=== PATIENT | female | born 1960 | race Caucasian/White ===

== ENCOUNTER 2019-02-08 21:45 | Observation (INO) ==
[2019-02-08] MEDS ORDERED: Ondansetron 4 MG/2 ML VIAL IVP ONE (22:10)
[2019-02-08] MEDS ORDERED: Morphine Sulfate 2 MG/ML SYRINGE IVP ONE (22:10)
--- NOTE | 2019-02-08 22:13 | Emergency Department Note ---
Disposition Referrals: Delonte Turner MD [Primary Care Provider] - Chest Pain HPI - General Chief Complaint: ED Shortness of Breath/Dyspnea Stated Complaint: Back and chest pain Time Seen by Provider: 02/08/19 21:47 Source: patient, EMS - History of Present Illness Severity scale (1-10): 5 - Related Data Home Medications Medication Instructions Recorded Confirmed BuPROPion XL (24 HR) [Wellbutrin 150 mg PO DAILY 08/12/17 08/12/17 XL] Cyclobenzaprine [Flexeril] 10 mg PO TID PRN 08/12/17 08/12/17 Duloxetine HCl [Cymbalta] 60 mg PO DAILY 08/12/17 08/12/17 Losartan Potassium [Cozaar] 50 mg PO DAILY 08/12/17 08/12/17 Montelukast [Singulair] 10 mg PO DAILY 08/12/17 08/12/17 Omeprazole [PriLOSEC] 20 mg PO DAILY 08/12/17 08/12/17 Triamterene/HCTZ 37.5/25mg 1 tab PO DAILY 08/12/17 08/12/17 [Dyazide] Allergies Allergy/AdvReac Type Severity Reaction Status Date / Time Sulfa (Sulfonamide Allergy Hives Verified 08/12/17 10:54 Antibiotics) Chest Pain PMH - Past Medical History Medical history: Reports: hypertension, other Surgical history: Reports: hysterectomy, other Psychiatric history: Reports: no psych history - Social History Smoking Status: Current every day smoker Alcohol use: Reports: none Drug use: Reports: none Physical Exam - General General appearance: alert Course Vital Signs Temperature 98.4 F 02/08/19 21:50 Pulse Rate 92 02/08/19 21:50 Respiratory Rate 02/08/19 21:50 Blood Pressure 127/84 02/08/19 21:50 O2 Sat by Pulse Oximetry 100 02/08/19 21:50 Temperature 98.4 F 02/08/19 21:50 Pulse Rate 92 02/08/19 21:50 Respiratory Rate 02/08/19 21:50 Blood Pressure 127/84 02/08/19 21:50 O2 Sat by Pulse Oximetry 100 02/08/19 21:50 Oxygen Delivery Oxygen Delivery Room Air
--- NOTE | 2019-02-08 22:16 | Emergency Department Note ---
Disposition Clinical Impression: Chest pain Qualifiers: Chest pain type: other chest pain Qualified Code(s): R07.89 - Other chest pain Disposition: Admitted As Inpatient Condition: Good Time of Disposition: 03:08 Chest Pain HPI - General Chief Complaint: ED Shortness of Breath/Dyspnea Stated Complaint: Back and chest pain Time Seen by Provider: 02/08/19 21:47 Source: patient, EMS Vital Signs Reviewed: Yes Nursing Notes Reviewed: Yes - History of Present Illness Pt complaint: chest pain Onset (ago): hour(s) Time: 13:00 (while on playground with famiy) Duration: constant Onset: during rest Pain Location: substernal, epigastric Severity scale (1-10): 5 Quality: heaviness Pain Radiation: back (midscapular), jaw/teeth (bilateral) Improves with: nitroglycerin (at EMS) Worsens with: supine Associated symptoms: Reports: dyspnea. Denies: nausea, vomiting, diaphoresis, sense of impending doom, palpitations, fever, cough, leg swelling Treatments prior to arrival chest pain: aspirin, nitroglycerin (in EMS) - Related Data On Oral Contraceptives: No Home Medications Medication Instructions Recorded Confirmed BuPROPion XL (24 HR) [Wellbutrin 450 mg PO DAILY 08/12/17 02/09/19 XL] Cyclobenzaprine [Flexeril] 10 mg PO TID PRN 08/12/17 02/09/19 Duloxetine HCl [Cymbalta] 120 mg PO DAILY 08/12/17 02/09/19 Losartan Potassium [Cozaar] 50 mg PO DAILY 08/12/17 02/09/19 Montelukast [Singulair] 10 mg PO DAILY 08/12/17 02/09/19 Omeprazole [PriLOSEC] 20 mg PO DAILY 08/12/17 02/09/19 Triamterene/HCTZ 37.5/25mg 1 tab PO DAILY 08/12/17 02/09/19 [Dyazide] Allergies Allergy/AdvReac Type Severity Reaction Status Date / Time Sulfa (Sulfonamide Allergy Hives Verified 08/12/17 10:54 Antibiotics) All systems ED: reviewed and negative except as stated. Review of Systems: As Per HPI Constitutional: Denies: fever ENT ED: Reports: as per HPI. Denies: throat pain Cardiovascular: Reports: as per HPI Respiratory: Reports: as per HPI. Denies: hemoptysis, stridor, sputum production Gastrointestinal: Reports: as per HPI. Denies: diarrhea, constipation Genitourinary: Denies: dysuria Musculoskeletal: Reports: as per HPI Integumentary: Denies: rash Neurological: Denies: headache Endocrine: Denies: fatigue Hematological/Lymphatic: Denies: lymphadenopathy Allergic/Immunologic: Denies: facial swelling Chest Pain PMH - Past Medical History Medical history: Reports: hypertension, other Surgical history: Reports: hysterectomy, other Psychiatric history: Reports: no psych history - Social History Smoking Status: Current every day smoker Alcohol use: Reports: none Drug use: Reports: none Physical Exam - General Limitations: no limitations General appearance: alert, in no apparent distress - Head Head exam: atraumatic, normocephalic - Eye Eye exam: Present: EOMI - ENT ENT exam: normal oropharynx, mucous membranes moist - Neck Neck exam: Present: full ROM. Absent: lymphadenopathy - Chest Chest inspection: Present: symmetric chest wall rise - Respiratory Respiratory exam: Present: normal lung sounds bilaterally. Absent: respiratory distress, wheezes, stridor, accessory muscle use - Cardiovascular Cardiovascular exam: Present: regular rate, normal rhythm - Abdominal Exam Abdominal exam: Present: soft, Non-Tender. Absent: Escoto's sign - Extremities Exam Extremities exam: Present: normal inspection, full ROM, normal capillary refill. Absent: pedal edema - Back Exam Back exam: Present: full ROM. Absent: tenderness, CVA tenderness (R), CVA tenderness (L), sciatic notch tenderness (R), sciatic notch tenderness (L) - Neurological Exam Neurological exam: Present: alert - Psychiatric Psychiatric exam: Present: normal affect, normal mood - Skin Skin exam: Present: warm, dry, intact, normal color. Absent: rash, cyanosis, diaphoresis Course Course Narrative: Germán is a 58-year-old female smoker that presents with complaint of epigastric/chest pain. She states this started approximately 1 PM earlier in the day while she was on the playground. He described it as radiating into her mid scapular region. She states that she first thought it was heartburn, but since it developed she describes it as a heaviness over her chest. She does describe it difficult for her to breathe and to catch her breath. She describes pain radiating up into her neck and bilateral jaw. Pain is worse when she lies supine. She did arrive via squad who administered aspirin and nitroglycerin. She states that the nitroglycerin had helped her. She mentions a history of reflux currently on reflux medications. She denies any cardiac history. She describes a history of a chronic cough, no worse today. She denies any nausea, vomiting, diaphoresis, hemoptysis, fever, bowel or bladder symptoms, abdominal pain.. Patient seen and examined no acute distress systolic toxic. Vitals within normal limits. Lungs clear. Heart regular rate and rhythm. Patient describes substernal epigastric pain with radiation into her neck jaw and mid scapular region. Accompanied with dyspnea. Pain improved with nitroglycerin. Concerning for ACS symptoms. Patient has no history of PE or DVT. Patient denies any new cough, fever, Analgesics ordered. Workup initiated. May need admission for ACS rule out if work up unremarkable. - Reevaluation(s) Reevaluation #1: Per laboratory department, there was a machine that had downtime, which extended the result time for the CBC. It has resulted, slight elevation of white count of 14. Again patient denies any fever, or illness. Patient's pain has persisted. No relief with morphine. She is agreeable to GI cocktail which has been ordered. I did advise for admission for ACS rule out. @01:42 No improvement of her pain with GI cocktail. Vitals stable. I will attempt to control her pain. Patient discussed with Dr. Ceja also face time patient. With workup and disposition/admission. Pt agreeable for admission. Hospitalist paged. Time: 00:43 Reevaluation #2: Patient discussed with and accepted by hospitalist Dr. Son. Pt had improvement after additional nitro and fentanyl. Time: 03:06 Vital Signs Temperature 98.4 F 02/08/19 21:50 Pulse Rate 92 02/08/19 21:50 Respiratory Rate 19 02/08/19 21:50 Blood Pressure 127/84 02/08/19 21:50 O2 Sat by Pulse Oximetry 100 02/08/19 21:50 Temperature 97.9 F 02/09/19 04:44 Pulse Rate 92 02/09/19 04:44 Respiratory Rate 16 02/09/19 04:44 Blood Pressure 129/81 02/09/19 04:44 O2 Sat by Pulse Oximetry 92 02/09/19 04:44 Oxygen Delivery Oxygen Delivery Room Air Chest Pain - MDM Narrative Medical decision making narrative: Chest X-Ray 02/08/19 22:10 IMPRESSION: No acute findings. D/ / Carlos Gaffney / Carlos Gaffney Interpreting Provider: Carlos Gaffney Laboratory Tests 02/08/19 02/08/19 02/08/19 22:26 22:26 22:26 WBC RBC Hgb Hct MCV MCH MCHC RDW Plt Count MPV Immature Gran % Seg Neutrophils % Lymphocytes % Monocytes % Eosinophils % Basophils % Neutrophils # Lymphocytes # Monocytes # Eosinophils # Basophils # Sodium 137 Potassium 4.0 Chloride 108 H Carbon Dioxide 23 BUN 10 Creatinine 0.78 Est GFR ( Amer) > 60 Est GFR (Non-Af Amer) > 60 BUN/Creatinine Ratio 13 Glucose 135 H Calculated Osmolality 285 Calcium 8.9 Total Bilirubin 0.3 Direct Bilirubin 0.1 Indirect Bilirubin 0.2 AST 14 ALT 13 Alkaline Phosphatase 93 Troponin I < 0.03 Serum Total Protein 5.6 L Albumin 3.4 L Globulin 2.2 L Albumin/Globulin Ratio 1.5 Lipase 9 L 02/08/19 23:56 WBC 14.1 H RBC 4.68 Hgb 13.9 Hct 42.2 MCV 90.2 MCH 29.7 MCHC 32.9 RDW 13.4 Plt Count 325 MPV 10.4 Immature Gran % 0.3 Seg Neutrophils % 82.6 Lymphocytes % 8.5 Monocytes % 7.7 Eosinophils % 0.6 Basophils % 0.3 Neutrophils # 11.6 H Lymphocytes # 1.2 Monocytes # 1.1 Eosinophils # 0.1 Basophils # 0.0 Sodium Potassium Chloride Carbon Dioxide BUN Creatinine Est GFR ( Amer) Est GFR (Non-Af Amer) BUN/Creatinine Ratio Glucose Calculated Osmolality Calcium Total Bilirubin Direct Bilirubin Indirect Bilirubin AST ALT Alkaline Phosphatase Troponin I Serum Total Protein Albumin Globulin Albumin/Globulin Ratio Lipase - Lab Data Lab results reviewed: Yes I reviewed the patient's lab results. Result diagrams: 02/08/19 23:56 02/08/19 22:26 Lab Results 02/08/19 02/08/19 02/08/19 Range/Units 22:26 22:26 22:26 WBC (4.3-11.1) K/mcL RBC (3.82-4.97) M/mcL Hgb (11.5-15.4) g/dL Hct (35.3-44.9) % MCV (83.0-100.0) fL MCH (28.0-33.3) pg MCHC (31.6-35.5) g/dL RDW (11.5-14.5) % Plt Count (140-400) K/mcL MPV (9.4-12.4) fL Immature Gran % (0-4) % Seg Neutrophils % % Lymphocytes % % Monocytes % % Eosinophils % % Basophils % % Neutrophils # (1.6-8.9) K/mcL Lymphocytes # (0.6-4.6) K/mcL Monocytes # (0.0-1.3) K/mcL Eosinophils # (0.0-0.6) K/mcL Basophils # (0.0-0.2) K/mcL Sodium 137 (136-145) mEq/L Potassium 4.0 (3.5-5.1) mEq/L Chloride 108 H (98-107) mEq/L Carbon Dioxide 23 (23-29) mEq/L BUN 10 (6-20) mg/dL Creatinine 0.78 (0.60-1.20) mg/dL Est GFR ( Amer) > 60 (> 60) Est GFR (Non-Af Amer) > 60 (> 60) BUN/Creatinine Ratio 13 (6-26) Glucose 135 H (70-105) mg/dL Calculated Osmolality 285 (280-300) Calcium 8.9 (8.6-10.3) mg/dL Total Bilirubin 0.3 (0.3-1.0) mg/dL Direct Bilirubin 0.1 (0.0-0.2) mg/dL Indirect Bilirubin 0.2 (0.0-1.2) mg/dL AST 14 (13-39) Units/L ALT 13 (7-52) Units/L Alkaline Phosphatase 93 (34-104) Units/L Troponin I < 0.03 (< 0.04) ng/mL Serum Total Protein 5.6 L (6.4-8.9) g/dL Albumin 3.4 L (3.5-5.7) g/dL Globulin 2.2 L (2.4-3.5) g/dL Albumin/Globulin Ratio 1.5 (1.1-2.2) Lipase 9 L (11-82) Units/L 02/08/19 Range/Units 23:56 WBC 14.1 H (4.3-11.1) K/mcL RBC 4.68 (3.82-4.97) M/mcL Hgb 13.9 (11.5-15.4) g/dL Hct 42.2 (35.3-44.9) % MCV 90.2 (83.0-100.0) fL MCH 29.7 (28.0-33.3) pg MCHC 32.9 (31.6-35.5) g/dL RDW 13.4 (11.5-14.5) % Plt Count 325 (140-400) K/mcL MPV 10.4 (9.4-12.4) fL Immature Gran % 0.3 (0-4) % Seg Neutrophils % 82.6 % Lymphocytes % 8.5 % Monocytes % 7.7 % Eosinophils % 0.6 % Basophils % 0.3 % Neutrophils # 11.6 H (1.6-8.9) K/mcL Lymphocytes # 1.2 (0.6-4.6) K/mcL Monocytes # 1.1 (0.0-1.3) K/mcL Eosinophils # 0.1 (0.0-0.6) K/mcL Basophils # 0.0 (0.0-0.2) K/mcL Sodium (136-145) mEq/L Potassium (3.5-5.1) mEq/L Chloride (98-107) mEq/L Carbon Dioxide (23-29) mEq/L BUN (6-20) mg/dL Creatinine (0.60-1.20) mg/dL Est GFR ( Amer) (> 60) Est GFR (Non-Af Amer) (> 60) BUN/Creatinine Ratio (6-26) Glucose (70-105) mg/dL Calculated Osmolality (280-300) Calcium (8.6-10.3) mg/dL Total Bilirubin (0.3-1.0) mg/dL Direct Bilirubin (0.0-0.2) mg/dL Indirect Bilirubin (0.0-1.2) mg/dL AST (13-39) Units/L ALT (7-52) Units/L Alkaline Phosphatase (34-104) Units/L Troponin I (< 0.04) ng/mL Serum Total Protein (6.4-8.9) g/dL Albumin (3.5-5.7) g/dL Globulin (2.4-3.5) g/dL Albumin/Globulin Ratio (1.1-2.2) Lipase (11-82) Units/L - Radiology Data Radiology results reviewed: Yes I reviewed the patient's radiology results. - EKG Data EKG attestation: Yes I reviewed and interpreted this EKG. EKG shows normal: sinus rhythm Rate: normal [place]/QRS: normal Interpretation: no acute changes Heart Score - Score History: Moderately Suspicious EKG: Normal Age: 45-65 Risk Factors: Equal/Greater than 3 risk factor or history of atherosclerotic disease Troponin: Less than normal limit HEART Score Total: 4
[2019-02-08 22:58] LABS: Albumin 3.4 g/dL (3.5-5.7); Albumin/Globulin Ratio 1.5 (1.1-2.2); Bilirubin,Direct 0.1 mg/dL (0.0-0.2); Bilirubin,Indirect 0.2 mg/dL (0.0-1.2); Bilirubin,Total 0.3 mg/dL (0.3-1.0); Globulin 2.2 g/dL (2.4-3.5); Total Protein 5.6 g/dL (6.4-8.9)
[2019-02-08 22:59] LABS: BUN/Creatinine Ratio 13 (6-26); Blood Urea Nitrogen 10 mg/dL (6-20); Calcium 8.9 mg/dL (8.6-10.3); Carbon Dioxide 23 mEq/L (23-29); Chloride 108 mEq/L (98-107); Glucose 135 mg/dL (70-105); Osmolality,Calculated 285 (280-300); Sodium 137 mEq/L (136-145); eGFR For African Americans > 60 (> 60); eGFR For Non-African Americans > 60 (> 60)
[2019-02-08 23:00] LABS: Troponin I < 0.03 ng/mL (< 0.04)
[2019-02-08] MEDS ORDERED: GI Cocktail 40 ML EACH PO ONE (23:44)
[2019-02-09 00:19] LABS: Basophils % 0.3 %; Eosinophils # 0.1 K/mcL (0.0-0.6); Eosinophils % 0.6 %; Hematocrit 42.2 % (35.3-44.9); Hemoglobin 13.9 g/dL (11.5-15.4); Immature Granulocytes % 0.3 % (0-4); Lymphocytes # 1.2 K/mcL (0.6-4.6); Lymphocytes % 8.5 %; Mean Corpuscular HGB Conc 32.9 g/dL (31.6-35.5); Mean Corpuscular Hemoglobin 29.7 pg (28.0-33.3); Mean Corpuscular Volume 90.2 fL (83.0-100.0); Mean Platelet Volume 10.4 fL (9.4-12.4); Monocytes # 1.1 K/mcL (0.0-1.3); Monocytes % 7.7 %; Neutrophils # 11.6 K/mcL (1.6-8.9); Platelet Count 325 K/mcL (140-400); Red Blood Count 4.68 M/mcL (3.82-4.97); Red Cell Distribution Width 13.4 % (11.5-14.5); Segmented Neutrophils % 82.6 %; White Blood Count 14.1 K/mcL (4.3-11.1)
[2019-02-09] MEDS ORDERED: *HR* FentaNYL (PF) 100 MCG/2 ML VIAL IVP ONE (01:40)
[2019-02-09] MEDS ORDERED: Nitroglycerin 0.4 MG TAB.SUBL SL SCH (01:45)
--- NOTE | 2019-02-09 02:04 | Emergency Department Note ---
Disposition Clinical Impression: Chest pain Qualifiers: Chest pain type: unspecified Qualified Code(s): R07.9 - Chest pain, unspecified Disposition: Admitted As Inpatient Condition: Good Referrals: Delonte Turner MD [Primary Care Provider] - Forms: ED Satisfaction Letter Time of Disposition: 03:08 General Adult HPI - General Chief complaint: ED Shortness of Breath/Dyspnea Stated complaint: Back and chest pain Time Seen by Provider: 02/08/19 21:47 Source: patient, EMS Limitations: no limitations Nursing Notes Reviewed: Yes Vital Signs Reviewed: Yes - History of Present Illness Pain Scale: 5 - Related Data Home Medications Medication Instructions Recorded Confirmed BuPROPion XL (24 HR) [Wellbutrin 450 mg PO DAILY 08/12/17 02/09/19 XL] Cyclobenzaprine [Flexeril] 10 mg PO TID PRN 08/12/17 02/09/19 Duloxetine HCl [Cymbalta] 120 mg PO DAILY 08/12/17 02/09/19 Losartan Potassium [Cozaar] 50 mg PO DAILY 08/12/17 02/09/19 Montelukast [Singulair] 10 mg PO DAILY 08/12/17 02/09/19 Omeprazole [PriLOSEC] 20 mg PO DAILY 08/12/17 02/09/19 Triamterene/HCTZ 37.5/25mg 1 tab PO DAILY 08/12/17 02/09/19 [Dyazide] Allergies Allergy/AdvReac Type Severity Reaction Status Date / Time Sulfa (Sulfonamide Allergy Hives Verified 08/12/17 10:54 Antibiotics) Constitutional: Denies: fever ENT ED: Reports: as per HPI. Denies: throat pain Cardiovascular: Reports: as per HPI Respiratory: Reports: as per HPI. Denies: hemoptysis, stridor, sputum production Gastrointestinal: Reports: as per HPI. Denies: diarrhea, constipation Genitourinary: Denies: dysuria Musculoskeletal: Reports: as per HPI Integumentary: Denies: rash Neurological: Denies: headache Endocrine: Denies: fatigue Hematological/Lymphatic: Denies: lymphadenopathy Allergic/Immunologic: Denies: facial swelling Past Medical History - Past Medical History Medical history: Reports: hypertension, other Surgical history: Reports: hysterectomy, other Psychiatric history: Reports: no psych history - Social History Smoking Status: Current every day smoker Alcohol use: Reports: none Drug use: Reports: none Physical Exam - General Limitations: no limitations General appearance: alert, in no apparent distress Course Vital Signs Temperature 98.4 F 02/08/19 21:50 Pulse Rate 92 02/08/19 21:50 Respiratory Rate 19 02/08/19 21:50 Blood Pressure 127/84 02/08/19 21:50 O2 Sat by Pulse Oximetry 100 02/08/19 21:50 Temperature 98.4 F 02/08/19 21:50 Pulse Rate 94 02/09/19 02:20 Respiratory Rate 18 02/09/19 02:20 Blood Pressure 141/94 02/09/19 02:20 O2 Sat by Pulse Oximetry 92 02/09/19 02:20 Oxygen Delivery Oxygen Delivery Room Air Medical Decision Making - Medical Records Medical records reviewed: Yes I reviewed the patient's medical records. - Lab Data Lab results reviewed: Yes I reviewed the patient's lab results. Result diagrams: 02/08/19 23:56 02/08/19 22:26 Lab Results 02/08/19 02/08/19 02/08/19 Range/Units 22:26 22:26 22:26 WBC (4.3-11.1) K/mcL RBC (3.82-4.97) M/mcL Hgb (11.5-15.4) g/dL Hct (35.3-44.9) % MCV (83.0-100.0) fL MCH (28.0-33.3) pg MCHC (31.6-35.5) g/dL RDW (11.5-14.5) % Plt Count (140-400) K/mcL MPV (9.4-12.4) fL Immature Gran % (0-4) % Seg Neutrophils % % Lymphocytes % % Monocytes % % Eosinophils % % Basophils % % Neutrophils # (1.6-8.9) K/mcL Lymphocytes # (0.6-4.6) K/mcL Monocytes # (0.0-1.3) K/mcL Eosinophils # (0.0-0.6) K/mcL Basophils # (0.0-0.2) K/mcL Sodium 137 (136-145) mEq/L Potassium 4.0 (3.5-5.1) mEq/L Chloride 108 H (98-107) mEq/L Carbon Dioxide 23 (23-29) mEq/L BUN 10 (6-20) mg/dL Creatinine 0.78 (0.60-1.20) mg/dL Est GFR ( Amer) > 60 (> 60) Est GFR (Non-Af Amer) > 60 (> 60) BUN/Creatinine Ratio 13 (6-26) Glucose 135 H (70-105) mg/dL Calculated Osmolality 285 (280-300) Calcium 8.9 (8.6-10.3) mg/dL Total Bilirubin 0.3 (0.3-1.0) mg/dL Direct Bilirubin 0.1 (0.0-0.2) mg/dL Indirect Bilirubin 0.2 (0.0-1.2) mg/dL AST 14 (13-39) Units/L ALT 13 (7-52) Units/L Alkaline Phosphatase 93 (34-104) Units/L Troponin I < 0.03 (< 0.04) ng/mL Serum Total Protein 5.6 L (6.4-8.9) g/dL Albumin 3.4 L (3.5-5.7) g/dL Globulin 2.2 L (2.4-3.5) g/dL Albumin/Globulin Ratio 1.5 (1.1-2.2) Lipase 9 L (11-82) Units/L 02/08/19 Range/Units 23:56 WBC 14.1 H (4.3-11.1) K/mcL RBC 4.68 (3.82-4.97) M/mcL Hgb 13.9 (11.5-15.4) g/dL Hct 42.2 (35.3-44.9) % MCV 90.2 (83.0-100.0) fL MCH 29.7 (28.0-33.3) pg MCHC 32.9 (31.6-35.5) g/dL RDW 13.4 (11.5-14.5) % Plt Count 325 (140-400) K/mcL MPV 10.4 (9.4-12.4) fL Immature Gran % 0.3 (0-4) % Seg Neutrophils % 82.6 % Lymphocytes % 8.5 % Monocytes % 7.7 % Eosinophils % 0.6 % Basophils % 0.3 % Neutrophils # 11.6 H (1.6-8.9) K/mcL Lymphocytes # 1.2 (0.6-4.6) K/mcL Monocytes # 1.1 (0.0-1.3) K/mcL Eosinophils # 0.1 (0.0-0.6) K/mcL Basophils # 0.0 (0.0-0.2) K/mcL Sodium (136-145) mEq/L Potassium (3.5-5.1) mEq/L Chloride (98-107) mEq/L Carbon Dioxide (23-29) mEq/L BUN (6-20) mg/dL Creatinine (0.60-1.20) mg/dL Est GFR ( Amer) (> 60) Est GFR (Non-Af Amer) (> 60) BUN/Creatinine Ratio (6-26) Glucose (70-105) mg/dL Calculated Osmolality (280-300) Calcium (8.6-10.3) mg/dL Total Bilirubin (0.3-1.0) mg/dL Direct Bilirubin (0.0-0.2) mg/dL Indirect Bilirubin (0.0-1.2) mg/dL AST (13-39) Units/L ALT (7-52) Units/L Alkaline Phosphatase (34-104) Units/L Troponin I (< 0.04) ng/mL Serum Total Protein (6.4-8.9) g/dL Albumin (3.5-5.7) g/dL Globulin (2.4-3.5) g/dL Albumin/Globulin Ratio (1.1-2.2) Lipase (11-82) Units/L - Radiology Data Radiology results reviewed: Yes I reviewed the patient's radiology results. Chest X-Ray 02/08/19 22:10 IMPRESSION: No acute findings. D/ / Carlos Gaffney / Carlos Gaffney Interpreting Provider: Carlos Gaffney - EKG Data EKG #1 EKG attestation: Yes I reviewed and interpreted this EKG. EKG results narrative: EKG shows a normal sinus rhythm with ventricular rate of 92. No significant ST segment elevation or depression. No arrhythmia or ectopy. No significant change from EKG dated 10/26/2011. Attestation Statement - Attestation Attestation: I, Fredi Ceja MD, personally evaluated this patient and discussed their management with the midlevel provicer, PAC/SLUDGE FILTRATION OPERATOR. I reviewed the midlevel provider's note and agree with the documented findings, medical decision making, and plan of care. 58-year-old female presents to the emergency department with a complaint of mid substernal chest pain radiating up into the throat and neck into the left arm. Symptoms started about 9 hours prior to arrival. There has been some shortness of breath with the chest pain. Also a few episodes of diaphoresis. Nausea but no vomiting. The pain is worse with exertion. Patient has a chronic cough which is unchanged from usual. On examination patient is a well-developed well-nourished female in no acute distress. She is alert and oriented 3. There is no cyanosis or diaphoresis. Chest is nontender to palpation. Breath sounds are equal bilaterally with a few crackles in the bases bilaterally. No wheezes. Heart regular rate and rhythm. Abdomen is soft and nontender with normal bowel sounds. Trace pedal edema bilaterally. EKG shows a normal sinus rhythm with ventricular rate of 92. No significant ST segment elevation or depression. No arrhythmia or ectopy. No significant change from EKG dated 10/26/2011. Chest x-ray negative. Labs reviewed. Troponin normal. The hospitalist, Dr. Son, was consulted and accepted admission of the patient.
[2019-02-09] MEDS: Nitroglycerin 0.4 MG TAB.SUBL SL PRN ×3 (02:17→04:40)
[2019-02-09] MEDS ORDERED: Nitroglycerin 0.4 MG TAB.SUBL SL PRN (05:24)
[2019-02-09] MEDS ORDERED: Acetaminophen 325 MG TABLET PO PRN (05:27)
[2019-02-09] MEDS ORDERED: Naloxone 0.4 MG/ML INJ IVP PRN (05:27)
[2019-02-09] MEDS ORDERED: Ondansetron 4 MG/2 ML VIAL IVP PRN (05:27)
[2019-02-09] MEDS ORDERED: *HR* OxyCODONE Immed Rel 5 MG TABLET PO PRN (05:27)
[2019-02-09] MEDS ORDERED: *HR* HYDROcodone/Acet 5/325 mg TABLET PO PRN (05:29)
--- NOTE | 2019-02-09 05:38 | Internal Med History&Physical ---
Date of Encounter: 02/09/19 Time of Encounter: 04:30 Internal Medicine - H&P: HPI Chief complaint: CP Admitted From: Emergency Dept Plans for Post Hospital Care: Home History of present illness: Ms. Escamilla is a 58 year old female w/PMH of HTN, GERD, chronic leg pain, and fibromyalgia presents from the ED w/CC of CP and SOB that started at work. 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 Pt. was at rest. Pt describes the pain as pressure like "someone sitting on her chest". Had a similar episode several months ago but did not seek treatment as she thought it was stress-related. Associated symptoms: Diaphoresis and dizziness. Aggravating factors: None. Alleviating factors: Nitroglycerin. Patient denies recent illness, fever, chills, nausea, vomiting, headache, changes in vision, unusual bleeding, abdominal pain, diarrhea, constipation, numbness, tingling, pre-syncope, or syncope. Past Med Surg Social Fam HX - Past Medical History Source: patient, old records reviewed Medical history: fibromyalgia (Chronic leg pain), GERD, hypertension, other Additional medical history: left carpal tunnel syndrome Psychiatric history: no psych history - Past Surgical History Surgical History: hysterectomy, other Additional surgical history: cyst removed from neck - Social History Smoking Status: Current every day smoker Packs per day: 0.5 PPD Smokeless Tobacco Status: No Alcohol use: none Drug use: none Occupational status: employed Current living situation: Home, With Family Activity Level: Independent ambulation Recent Out of Country Travel Within the Last 8 Weeks: No Exposure or Possible Exposure to Illness During Travel: No - Family History Father Race: Family Member Ethnicity: Non- Living Status: Age at : 54 Cause of : [place] Hx Family Cardiac Disorders: Yes (Several MIs <55, Massive [place] @ 55) Mother Race: Family Member Ethnicity: Non- Living Status: Still Living Hx Family Medical Disorders: No Sister Race: Family Member Ethnicity: Non- Living Status: Still Living Hx Family Medical Disorders: No Internal Medicine - H&P: Meds BuPROPion XL (24 HR) [Wellbutrin XL] 450 mg PO DAILY 08/12/17 [History] Cyclobenzaprine [Flexeril] 10 mg PO TID PRN 08/12/17 [History] Duloxetine HCl [Cymbalta] 120 mg PO DAILY 08/12/17 [History] Losartan Potassium [Cozaar] 50 mg PO DAILY 08/12/17 [History] Montelukast [Singulair] 10 mg PO DAILY 08/12/17 [History] Omeprazole [PriLOSEC] 20 mg PO DAILY 08/12/17 [History] Triamterene/HCTZ 37.5/25mg [Dyazide] 1 tab PO DAILY 08/12/17 [History] Allergy/AdvReac Type Severity Reaction Status Date / Time Sulfa (Sulfonamide Allergy Hives Verified 08/12/17 10:54 Antibiotics) All Systems PM: A 10-system review of systems was performed and is negative for pertinent findings except as documented above in the HPI. - Constitutional Constitutional: as per HPI, no chills, no fever(s), no night sweats - EENT Eyes: no change in vision, no discharge, no pain, no photophobia Ears: no ear discharge, no ear pain, no tinnitus Nose, mouth and throat: no dysphagia, no nasal discharge, no neck pain, no sore throat - Breasts Breasts: as per HPI - Cardiovascular Cardiovascular ROS IM: as per HPI, chest pain, diaphoresis, dyspnea, dyspnea on exertion, lightheadedness, no palpitations, no syncope - Respiratory Respiratory: as per HPI, dyspnea, dyspnea on exertion, no cough, no wheezing, no excessive phlegm production - Gastrointestinal Gastrointestinal: as per HPI, no abdominal pain, no diarrhea, no hematemesis, no hematochezia, no melena, no nausea, no vomiting - Genitourinary Genitourinary: no change in urinary stream, no dysuria, no flank pain, no hematuria Menstruation: as per HPI - Musculoskeletal Musculoskeletal ROS IM: as per HPI, myalgias, no numbness, no tingling - Integumentary Integumentary IM: no rash, no unusual bruising - Neurological Neurological ROS: as per HPI, dizziness, no confusion, no convulsions, no focal weakness, no numbness, no tingling, no tremor(s) - Psychiatric Psychiatric: as per HPI - Endocrine Endocrine IM: as per HPI - Hematologic/Lymphatic Hematologic/Lymphatic: no easy bruising - Allergic/Immunologic Allergic/Immunologic: as per HPI - Constitutional Vitals: Temp Pulse Resp BP Pulse Ox 97.9 F 92 16 129/81 92 02/09/19 04:44 02/09/19 04:44 02/09/19 04:44 02/09/19 04:44 02/09/19 04:44 General appearance: Present: cooperative, mild distress (CP), A&O X 3, pleasant, obese, answers questions appropriately Exam: Patient examined at bedside. Reports mild CP, diaphoresis, and SOB. Denies any N/V or any other sx or complaints on exam. VS: 97.9F temp, HR 92, RR 16, BP 129/81, SPO2 92% on 2 L via nasal cannula. - Head Head exam: Present: atraumatic, normocephalic - Eye Eye exam: Present: PERRL, conjuntiva pink, sclera anicteric Pupils: Present: PERRL - ENT ENT exam: Present: normal exam - Neck Neck exam general surgery: Present: normal inspection, supple, trachea midline. Absent: lymphadenopathy - Respiratory Respiratory exam: Present: CTAB. Absent: accessory muscle use, rales, rhonchi, wheezes - Cardiovascular Cardiovascular exam: Present: RRR, +S1, +S2. Absent: diastolic murmur, gallop, rubs, systolic murmur - GI/Abdominal GI/Abdominal exam: Present: normal bowel sounds, soft, no peritoneal signs. Absent: distended, tenderness - Rectal Rectal exam: Present: deferred - Additional comments: exam deferred. - Extremities Exam Extremities exam: Present: warm, radial pulses palpable and symmetrical. Absent: calf tenderness, cyanotic, pedal edema - Back Exam Back exam: Present: normal inspection - Neurological Exam Neurological exam: Present: alert, CN II-XII intact, oriented X3, no focal deficits. Absent: pronater drift, facial droop, speech deficit - Psychiatric Psychiatric exam: Present: normal affect, normal mood - Skin Skin exam: Present: dry, intact Internal Med - H&P Results - Labs CBC & Chem 7: 02/08/19 23:56 02/08/19 22:26 Labs: Short CBC 02/08/19 Range/Units 23:56 WBC 14.1 H (4.3-11.1) K/mcL Hgb 13.9 (11.5-15.4) g/dL Hct 42.2 (35.3-44.9) % Plt Count 325 (140-400) K/mcL Neutrophils # 11.6 H (1.6-8.9) K/mcL BMP 02/08/19 22:26 Sodium 137 Potassium 4.0 Chloride 108 H Carbon Dioxide 23 BUN 10 Creatinine 0.78 Glucose 135 H Calcium 8.9 Cardiac Enzymes 02/08/19 Range/Units 22:26 Troponin I < 0.03 (< 0.04) ng/mL Liver Function 02/08/19 Range/Units 22:26 Total Bilirubin 0.3 (0.3-1.0) mg/dL Direct Bilirubin 0.1 (0.0-0.2) mg/dL AST 14 (13-39) Units/L ALT 13 (7-52) Units/L Alkaline Phosphatase 93 (34-104) Units/L Albumin 3.4 L (3.5-5.7) g/dL - EKG Data EKG shows normal: sinus rhythm - EKG Data Prior EKG available for review: no EKG comments: 02/09/19 05:48 EKG dated 02/09/19 shows sinus rhythm with inferior myocardial infarction, probably old. - Impressions ITS Impressions Chest X-Ray 02/08/19 22:10 IMPRESSION: No acute findings. D/ / Carlos Gaffney / Carols Gaffney Interpreting Provider: Carlos Gaffney - Assessment and Plan (1) Chest pain Current Visit: Yes Status: Acute Assessment and plan: Acute CP and SOB that started at work. 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 Pt. was at rest. Pt describes the pain as pressure like "someone sitting on her chest". Had a similar episode several months ago but did not seek treatment as she thought it was stress-related. Associated symptoms: Diaphoresis and dizziness. Aggravating factors: None. Alleviating factors: Nitroglycerin. ASA in squad. 80 mg of Lipitor ONCE. SL nitro. Heparin gtt ordered d/t severe CP. Initial troponin <0.03. Trending. Echocardiogram. NPO now for nuclear pharm stress test today if troponins remain WNL. Cardiology consult ordered but not confirmed d/t time of night placed. Consult ordered d/t unstable angina. A.M. Hospitalist to f/u and confirm Cardiology consult in a.m. Patient is high risk for further morbidity and cardiac event d/t current unstable angina at rest, familial hx of [place] <55 years of age in father, current tobacco abuse, HTN hx, and obesity. Observation. Qualifiers: Chest pain type: other chest pain Qualified Code(s): R07.89 - Other chest pain; R07.8 - Other chest pain (2) Leukocytosis Current Visit: Yes Status: Acute Assessment and plan: Acute leukocytosis on admission w/WBC of 14.1. Pt. denies recent illness, fever, chills, feeling ill. Likely reactive to CP. No identifiable infection source. Stat respiratory infection panel ordered since pt. works in a school. Monitor pt. and f/u labs. Qualifiers: Leukocytosis type: unspecified Qualified Code(s): D72.829 - Elevated white blood cell count, unspecified (3) HTN (hypertension) Current Visit: Yes Status: Chronic Assessment and plan: Hx of chronic HTN. Monitor pt. and VS. Continue pts. Cozaar. Qualifiers: Hypertension type: essential hypertension Qualified Code(s): I10 - Essential (primary) hypertension (4) Fibromyalgia Current Visit: Yes Status: Chronic Assessment and plan: Hx of chronic fibromyalgia. Continue pts. Cymbalta and Wellbutrin. (5) Chronic leg pain Current Visit: Yes Status: Chronic Assessment and plan: Hx of chronic leg pain. Continue pts. Flexeril. Qualifiers: Laterality: bilateral Qualified Code(s): M79.604 - Pain in right leg; M79.605 - Pain in left leg; G89.29 - Other chronic pain (6) DVT prophylaxis Current Visit: Yes Status: Acute Assessment and plan: Heparin gtt for ACS ordered d/t pts. severe CP. monitor pt. for signs of bleeding. - Time Spent With Patient Total time spent is greater than 50% in coordination of care (as documented) at patient's floor/unit and/or counseling patient: Greater than 35 minutes
[2019-02-09] MEDS ORDERED: Morphine Sulfate 2 MG/ML SYRINGE IVP ONE (05:49)
[2019-02-09] MEDS ORDERED: *HR* Heparin 5,000 UNIT/ML VIAL IVP PRN ×2 (05:51)
[2019-02-09] MEDS ORDERED: *HR* Heparin 5,000 UNIT/ML VIAL IVP ONE (05:51)
[2019-02-09] MEDS ORDERED: Heparin 25,000 UNIT/250 ML D5W 25,000 UNIT/250 ML IV.SOLN IVC SCH (06:00)
[2019-02-09] MEDS ORDERED: Regadenoson 0.4 MG/5 ML SYRINGE IVP ONE (06:09)
[2019-02-09 06:57] LABS: Hematocrit 41.9 % (35.3-44.9); Hemoglobin 13.5 g/dL (11.5-15.4); Mean Corpuscular HGB Conc 32.2 g/dL (31.6-35.5); Mean Corpuscular Hemoglobin 29.3 pg (28.0-33.3); Mean Corpuscular Volume 90.9 fL (83.0-100.0); Platelet Count 317 K/mcL (140-400); Red Blood Count 4.61 M/mcL (3.82-4.97); Red Cell Distribution Width 13.4 % (11.5-14.5); White Blood Count 12.2 K/mcL (4.3-11.1)
[2019-02-09 07:11] LABS: Heparin anti-factor XA UFH 0.05 IU/mL (0.30-0.70)
[2019-02-09 07:12] LABS: Prothrombin Time 10.8 Seconds (9.4-12.1)
[2019-02-09 07:28] VITALS: BP 142/88
[2019-02-09] MEDS ORDERED: Aspirin Enteric Coated 81 MG Tablet PO SCH (09:00)
[2019-02-09] MEDS ORDERED: Levalbuterol Neb 1.25 MG/3 ML IH PRN (10:17)
[2019-02-09 12:18] LABS: Adenovirus Not Detected (Not Detect); Bordetella Pertussis Not Detected (Not Detect); Chlamydophila pneumoniae Not Detected (Not Detect); Coronavirus 229E Not Detected (Not Detect); Coronavirus HKU1 Not Detected (Not Detect); Coronavirus NL63 Not Detected (Not Detect); Coronavirus OC43 Not Detected (Not Detect); Human Metapneumovirus Not Detected (Not Detect); Human Rhinovirus/Enterovirus Not Detected (Not Detect); Influenza A Subtype 2009 H1 Not Detected (Not Detect); Influenza A Untypeable Not Detected (Not Detect); Influenza B Not Detected (Not Detect); Mycoplasma pneumoniae Not Detected (Not Detect); Parainfluenza Virus 1 Not Detected (Not Detect); Parainfluenza Virus 2 Not Detected (Not Detect); Parainfluenza Virus 3 Not Detected (Not Detect); Parainfluenza Virus 4 Not Detected (Not Detect); Respiratory Syncytial Virus Not Detected (Not Detect)
--- NOTE | 2019-02-09 13:01 | Event Note ---
Date of Encounter: 02/09/19 Time of Encounter: 13:00 Patient was seen and examined at bedside today. Patient was hospitalized for chest pain overnight. Patient troponins 2 is negative. Patient is alert and oriented 3. Patient's exam is unremarkable. Patient reports that she has been has improved. Patient was within normal limit. Patient to go for stress test today. We will consider discharging patient for stress test if everything is normal.
[2019-02-09] MEDS ORDERED: *HR* Heparin 5,000 UNIT/ML VIAL SQ SCH (14:00)
--- NOTE | 2019-02-09 14:06 | Discharge Summary ---
- NOTES TO OUTPATIENT PROVIDER Notes to Outpatient Provider: Pt was admitted overnight due to chest pain. Patient's troponin 3 was negative patient was placed on heparin drip. Patient on the nuclear stress test done. Patient nuclear stress test was negative for stool anemia. Patient's echocardiogram was within normal limit. We will discharge patient home patient was advised to continue aspirin 81 daily. Follow-up with primary care provider within 1 week. Date of Encounter: 02/09/19 Time of Encounter: 14:02 - Discharge Diagnosis (1) Chest pain Priority: Primary Status: Acute Qualifiers: Chest pain type: other chest pain Qualified Code(s): R07.89 - Other chest pain; R07.8 - Other chest pain (2) HTN (hypertension) Priority: Secondary Status: Chronic Qualifiers: Hypertension type: essential hypertension Qualified Code(s): I10 - Essential (primary) hypertension (3) Fibromyalgia Priority: Secondary Status: Chronic (4) Chronic leg pain Priority: Secondary Status: Chronic Qualifiers: Laterality: bilateral Qualified Code(s): M79.604 - Pain in right leg; M79.605 - Pain in left leg; G89.29 - Other chronic pain (5) DVT prophylaxis Priority: Secondary Status: Acute (6) Leukocytosis Priority: Secondary Status: Acute Qualifiers: Leukocytosis type: unspecified Qualified Code(s): D72.829 - Elevated white blood cell count, unspecified Hospital course: Ms. Escamilla is a 58 year old female was admitted overnight due to chest pain. Patient's troponin 3 was negative patient was placed on heparin drip. Patient on the nuclear stress test done. Patient nuclear stress test was negative for stool anemia. Patient's echocardiogram was within normal limit. We will discharge patient home patient was advised to continue aspirin 81 daily. Follow-up with primary care provider within 1 week. Discharge discussed with: patient, family, nurse - Time Spent with Patient Total time spent providing and/or coordinating discharge services: 35 Time spent: Greater than 30 minutes - Discharge Medications Prescriptions: New Aspirin Enteric Coated [Aspirin EC] 81 mg PO DAILY tablet.dr Continued Cyclobenzaprine [Flexeril] 10 mg PO TID PRN PRN Reason: Muscle Spasm Triamterene/HCTZ 37.5/25mg [Dyazide] 1 tab PO DAILY Montelukast [Singulair] 10 mg PO DAILY Losartan Potassium [Cozaar] 50 mg PO DAILY BuPROPion XL (24 HR) [Wellbutrin Xl] 450 mg PO DAILY Omeprazole [PriLOSEC] 20 mg PO DAILY Duloxetine HCl [Cymbalta] 120 mg PO DAILY Home Medications: BuPROPion XL (24 HR) [Wellbutrin Xl] 450 mg PO DAILY 08/12/17 [History] Cyclobenzaprine [Flexeril] 10 mg PO TID PRN 08/12/17 [History] Duloxetine HCl [Cymbalta] 120 mg PO DAILY 08/12/17 [History] Losartan Potassium [Cozaar] 50 mg PO DAILY 08/12/17 [History] Montelukast [Singulair] 10 mg PO DAILY 08/12/17 [History] Omeprazole [PriLOSEC] 20 mg PO DAILY 08/12/17 [History] Triamterene/HCTZ 37.5/25mg [Dyazide] 1 tab PO DAILY 08/12/17 [History] Aspirin Enteric Coated [Aspirin EC] 81 mg PO DAILY tablet. 02/09/19 [Rx] Allergies/Adverse Reactions: Allergy/AdvReac Type Severity Reaction Status Date / Time Sulfa (Sulfonamide Allergy Hives Verified 08/12/17 10:54 Antibiotics) Date of admission: 02/09/19 03:11 Primary care physician: Delonte Turner MD Discharging clinician: Richard Macdonald - Constitutional Vitals: Temp Pulse Resp BP Pulse Ox 98.5 F 93 18 142/88 91 02/09/19 07:24 02/09/19 07:24 02/09/19 07:24 02/09/19 07:24 02/09/19 07:24 General appearance: Present: cooperative, mild distress (CP), A&O X 3, pleasant, obese, answers questions appropriately Exam: General: A & O 3, In no acute distress HENNT: PERRLA. Head atraumatic and makes supple CVS S1 and S2 regular, no murmur RS: Clear to air entry bilaterally, no wheeze, no crackles Abdomen: Soft and nontender. Bowel sounds normal 4 Extremities: No cyanosis, clubbing, and edema Neurology: Cranial II-XII normal. Motor strength 5/5 bilaterally. Sensation intact - Patient Status Disposition: Home, Self-Care Overall status at discharge: patient is progressing back to baseline - Discharge Instructions Follow Up With: Delonte Turner MD [Primary Care Provider] - 02/28/19 1:45 pm (Please follow up as schedule...) - Diet and Activity Activity: increase activity as tolerated Diet: low salt diet
[2019-02-09] MEDS ORDERED: Levalbuterol Neb 1.25 MG/3 ML IH SCH (16:00)
--- NOTE | 2019-02-09 20:59 | Electrocardiograph Report ---
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
--- NOTE | 2019-02-11 00:22 | Electrocardiograph Report ---
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
== END 2019-02-09 14:34 | disposition home or self-care (01) ==
LOC: EMEROOARM 21:45 → 2ANU 21:45 → SUATTDRO 02-09 03:11 → 2ANU 02-09 03:30
PROVIDERS: ADMIT Internal Medicine; ATTEND Family Medicine